=== PATIENT | male | born 1985 | race Caucasian/White ===

== ENCOUNTER 2017-05-19 | Inpatient (IN) | payer OTHER ==
[2017-05-19] VITALS (7 sets, daily range): BP systolic 100–136; BP diastolic 64–87
[~2017-05-19] VITALS: Ht 182.9 cm; Wt 81.6 kg
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
[2017-05-19 00:38] LABS: BASO % 1 % (0-3); EOS % 3 % (0-3); HEMATOCRIT 45.5 % (39.0-53.0); HEMOGLOBIN 15.4 g/dL (13.0-17.5); LYMPH # 1.7 x10^3/uL (1.0-4.8); LYMPH % 33 % (24-48); MEAN CORPUSCULAR HEMOGLOBIN 30 pg (25-35); MEAN CORPUSCULAR HGB CONC 34 g/dL (31-37); MEAN CORPUSCULAR VOLUME 90 fL (79-100); MONO % 8 % (0-9); NEUT % 55 % (31-73); PLATELET COUNT 153 x10^3/uL (140-400); RED BLOOD COUNT 5.06 x10^6/uL (4.30-5.70); RED CELL DISTRIBUTION WIDTH 12.6 % (11.5-14.5); WHITE BLOOD COUNT 5.1 x10^3/uL (4.0-11.0)
[2017-05-19 00:56] LABS: ANION GAP 7 (6-14); BLOOD UREA NITROGEN 15 mg/dL (8-26); CALCIUM 9.1 mg/dL (8.5-10.1); CARBON DIOXIDE 29 mmol/L (21-32); CHLORIDE 106 mmol/L (98-107); GFR 88.3; GLUCOSE 91 mg/dL (70-99); POTASSIUM 4.2 mmol/L (3.5-5.1); SODIUM 142 mmol/L (136-145)
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
[2017-05-19] MEDS ORDERED: MAGNESIUM SULFATE 2GM 50 ML IV ONE (02:30)
[2017-05-19] MEDS ORDERED: ONDANSETRON PF 4 MG/2 ML VIAL. IV PRN ×2 (02:45→09:00)
[2017-05-19] MEDS ORDERED: ACETAMINOPHEN 325 MG TABLET. PO PRN (02:45)
[2017-05-19] MEDS ORDERED: BUSP10TA PO (02:47)
[2017-05-19] MEDS ORDERED: PHEN100C PO (02:47)
[2017-05-19] MEDS ORDERED: BUPR100T7 PO (02:47)
[2017-05-19] MEDS ORDERED: CARB200T PO (02:47)
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
[2017-05-19] MEDS ORDERED: IBUPROFEN 600 MG TABLET. PO PRN (09:00)
[2017-05-19] MEDS ORDERED: PHENYTOIN SODIUM EXTENDED 100 MG CAPSULE PO SCH (09:00)
[2017-05-19] MEDS: buPROPion SR 100 MG TABLET.SA. PO SCH ×2 (09:24→20:51)
[2017-05-19] MEDS: carBAMazepine 200 MG TABLET PO SCH ×2 (09:25→20:49)
[2017-05-19] MEDS: busPIRone 10 MG TABLET. PO SCH ×2 (09:25→20:49)
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
--- NOTE | 2017-05-19 19:58 | PDOC2 ---
NEUROLOGY CONSULT Date of Admission Date of Admission Full Report Dictated DATE: 05/19/17 TIME: 19:56 Current Medications Current Medications Current Medications Magnesium Sulfate/ Dextrose 50 ml @ 25 mls/hr 1X ONCE IV ; Start 05/19/17 at 02:30; Stop 05/19/17 at 04:29; Status Cancel Ondansetron HCl (Zofran) 4 mg PRN Q8HRS PRN IV NAUSEA/VOMITING; Start at 02:45; Stop 05/19/17 at 08:51; Status DC Acetaminophen (Tylenol) 650 mg PRN Q4HRS PRN PO FEVER; Start 05/19/17 at 02:45 ; Stop 05/20/17 at 02:44 Ondansetron HCl (Zofran) 4 mg PRN Q6HRS PRN IV NAUSEA/VOMITING; Start at 09:00 Ibuprofen (Motrin) 600 mg PRN Q6HRS PRN PO INFLAMMATION Last administered on 09:30; Start 05/19/17 at 09:00 Bupropion HCl (Wellbutrin Sr) 100 mg BID PO Last administered on 05/19/17 09: 24; Start 05/19/17 at 09:00 Buspirone HCl (Buspar) 20 mg BID PO Last administered on 05/19/17 09:25; Start 05/19/17 at 09:00 Carbamazepine (TEGretol) 200 mg BID PO Last administered on 05/19/17 09:25; Start 05/19/17 at 09:00 Phenytoin Sodium (Dilantin) 100 mg BID PO Last administered on 05/19/17 09:24 ; Start 05/19/17 at 09:00; Stop 05/19/17 at 19:43; Status DC Lorazepam (Ativan) 2 mg PRN Q4HRS PRN IV ANXIETY / AGITATION; Start 05/19/17 at 16:30 Phenytoin Sodium (Dilantin) 200 mg BID PO ; Start 05/19/17 at 21:00; Status UNV Active Scripts Active Reported Dilantin (Phenytoin Sodium Extended) 100 Mg Capsule 100 Mg PO BID Tegretol (Carbamazepine) 200 Mg Tablet 1 Tab PO BID Buspirone Hcl 10 Mg Tablet 20 Mg PO BID Wellbutrin Sr (Bupropion Hcl) 100 Mg Tablet.er 100 Mg PO BID Allergies Allergies: Coded Allergies: haloperidol (Verified Allergy, Intermediate, 05/19/17) Vitals VITALS Vital Signs Date Time Temp Pulse Resp B/P (MAP) Pulse Ox O2 Delivery O2 Flow Rate FiO2 05/19/17 14:50 97.6 76 18 118/72 (87) 98 Room Air 97.6 Labs Labs Laboratory Tests Test 05/19/17 00:20 White Blood Count 5.1 x10^3/uL (4.0-11.0) Red Blood Count 5.06 x10^6/uL (4.30-5.70) Hemoglobin 15.4 g/dL (13.0-17.5) Hematocrit 45.5 % (39.0-53.0) Mean Corpuscular Volume 90 fL (79-100) Mean Corpuscular Hemoglobin 30 pg (25-35) Mean Corpuscular Hemoglobin Concent 34 g/dL (31-37) Red Cell Distribution Width 12.6 % (11.5-14.5) Platelet Count 153 x10^3/uL (140-400) Neutrophils (%) (Auto) 55 % (31-73) Lymphocytes (%) (Auto) 33 % (24-48) Monocytes (%) (Auto) 8 % (0-9) Eosinophils (%) (Auto) 3 % (0-3) Basophils (%) (Auto) 1 % (0-3) Neutrophils # (Auto) 2.8 x10^3uL (1.8-7.7) Lymphocytes # (Auto) 1.7 x10^3/uL (1.0-4.8) Monocytes # (Auto) 0.4 x10^3/uL (0.0-1.1) Eosinophils # (Auto) 0.2 x10^3/uL (0.0-0.7) Basophils # (Auto) 0.0 x10^3/uL (0.0-0.2) Sodium Level 142 mmol/L (136-145) Potassium Level 4.2 mmol/L (3.5-5.1) Chloride Level 106 mmol/L (98-107) Carbon Dioxide Level 29 mmol/L (21-32) Anion Gap 7 (6-14) Blood Urea Nitrogen 15 mg/dL (8-26) Creatinine 1.0 mg/dL (0.7-1.3) Estimated GFR (Cockcroft-Gault) 88.3 Glucose Level 91 mg/dL (70-99) Calcium Level 9.1 mg/dL (8.5-10.1) Magnesium Level 2.0 mg/dL (1.8-2.4) Phenytoin (Dilantin) Level 4.5 mcg/mL (10.0-20.0) Phenytoin Last Dose Date Phenytoin Last Dose Time Carbamazepine (Tegretol) Level 2.3 mcg/mL (4.0-12.0) Carbamazepine Last Dose Date Carbamazepine Last Dose Time Laboratory Tests Test 05/19/17 00:20 White Blood Count 5.1 x10^3/uL (4.0-11.0) Red Blood Count 5.06 x10^6/uL (4.30-5.70) Hemoglobin 15.4 g/dL (13.0-17.5) Hematocrit 45.5 % (39.0-53.0) Mean Corpuscular Volume 90 fL (79-100) Mean Corpuscular Hemoglobin 30 pg (25-35) Mean Corpuscular Hemoglobin Concent 34 g/dL (31-37) Red Cell Distribution Width 12.6 % (11.5-14.5) Platelet Count 153 x10^3/uL (140-400) Neutrophils (%) (Auto) 55 % (31-73) Lymphocytes (%) (Auto) 33 % (24-48) Monocytes (%) (Auto) 8 % (0-9) Eosinophils (%) (Auto) 3 % (0-3) Basophils (%) (Auto) 1 % (0-3) Neutrophils # (Auto) 2.8 x10^3uL (1.8-7.7) Lymphocytes # (Auto) 1.7 x10^3/uL (1.0-4.8) Monocytes # (Auto) 0.4 x10^3/uL (0.0-1.1) Eosinophils # (Auto) 0.2 x10^3/uL (0.0-0.7) Basophils # (Auto) 0.0 x10^3/uL (0.0-0.2) Sodium Level 142 mmol/L (136-145) Potassium Level 4.2 mmol/L (3.5-5.1) Chloride Level 106 mmol/L (98-107) Carbon Dioxide Level 29 mmol/L (21-32) Anion Gap 7 (6-14) Blood Urea Nitrogen 15 mg/dL (8-26) Creatinine 1.0 mg/dL (0.7-1.3) Estimated GFR (Cockcroft-Gault) 88.3 Glucose Level 91 mg/dL (70-99) Calcium Level 9.1 mg/dL (8.5-10.1) Magnesium Level 2.0 mg/dL (1.8-2.4) Phenytoin (Dilantin) Level 4.5 mcg/mL (10.0-20.0) Phenytoin Last Dose Date Phenytoin Last Dose Time Carbamazepine (Tegretol) Level 2.3 mcg/mL (4.0-12.0) Carbamazepine Last Dose Date Carbamazepine Last Dose Time Assessment/Plan Assessment/Plan Patient is a 31-year-old with a known seizure disorder maintained on Dilantin and Tegretol but subtherapeutic on both medications. He reports that his usual dose of Dilantin is 200 mg twice a day which I will resume. I will give a load of fosphenytoin of 800 mg to try to get him more in the therapeutic range. He will need a follow-up Dilantin level in one week. He reports the Tegretol was 100 mg in the morning and 200 mg at night. I will change this to 200 mg twice per day to simplify the regimen. He will likely be subtherapeutic on this dosage so level is not necessary. He were to have further breakthrough seizures then levels can be obtained and the dosage can be pushed. Likely has suffered a concussion which will take up to 12 weeks to resolve. He may be transferred back to his facility tomorrow if he continues to be medically stable. SONYA MATA MD May 19, 2017 19:58
[2017-05-19] MEDS ORDERED: NORMAL SALINE IV ONE (20:15)
[2017-05-19] MEDS ORDERED: FOSPHENYTOIN IV ONE (20:15)
[2017-05-19] MEDS: PHENYTOIN SODIUM EXTENDED 100 MG CAPSULE PO SCH (20:51)
[2017-05-20 03:00] VITALS: BP 124/70
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
[2017-05-20 06:10] LABS: BASO % 1 % (0-3); EOS % 4 % (0-3); HEMOGLOBIN 14.4 g/dL (13.0-17.5); LYMPH % 42 % (24-48); MEAN CORPUSCULAR HEMOGLOBIN 30 pg (25-35); MEAN CORPUSCULAR HGB CONC 34 g/dL (31-37); MEAN CORPUSCULAR VOLUME 91 fL (79-100); MONO % 8 % (0-9); NEUT % 45 % (31-73); PLATELET COUNT 141 x10^3/uL (140-400); RED BLOOD COUNT 4.75 x10^6/uL (4.30-5.70); RED CELL DISTRIBUTION WIDTH 12.9 % (11.5-14.5); WHITE BLOOD COUNT 4.7 x10^3/uL (4.0-11.0)
[2017-05-20 06:34] LABS: CALCIUM 9.1 mg/dL (8.5-10.1); GFR 88.3
[2017-05-20 07:20] VITALS: BP 138/72
[2017-05-20] MEDS: PHENYTOIN SODIUM EXTENDED 100 MG CAPSULE PO SCH ×2 (09:11→17:41)
[2017-05-20] MEDS: carBAMazepine 200 MG TABLET PO SCH ×2 (09:12→17:41)
[2017-05-20] MEDS: busPIRone 10 MG TABLET. PO SCH ×2 (09:12→17:41)
[2017-05-20] MEDS: buPROPion SR 100 MG TABLET.SA. PO SCH ×2 (09:12→17:41)
[2017-05-20 11:04] VITALS: BP 118/77
--- NOTE | 2017-05-20 13:54 | PDOC ---
PROGRESS NOTES Assessment Assessment IMPRESSION: Head injury, soft tissue. Seizure per Hx. RECOMMENDATIONS/PLAN: EEG Continue his AEDs. at the present time. Tegretol 200 mg bid, Dilantin 200 mg bid. SUBJECTIVE: No complaints on 05/20/17. OBJECTIVE: No seizures. Past Medical History CENTRAL NERVOUS SYSTEM: Seizure Past Surgical History No pertinent history Family History No Significant Social History Smoke: No ALCOHOL: none Drugs: None ALLERGY: Reviewed. MEDICATIONS: Refer to [facility] REVIEW OF SYSTEMS: Constitutional: No malnutrition, weight loss, cachexia. Head: Head soft tissue injury this time. Skin: No edema, or rash. Ear: No infection. Eyes: No vision loss, or diplopia. Nose: No bleeding or purulent discharges. Hearing: No hearing decrease. Neck: No injury. Cardiac: No OH, arrhythmia Pulmonary: No pneumonia. GI: No GI Ulcer, GI bleeding Urinary/genital: No dysuria, incontinence, urinary retention. Endocrine: No cousin face, craniofacial dysmorphism, polydactyly Skeletomuscular: No muscular atrophy, deformity. Neurological: see HP. Psychiatric: Denies drug use/abuse. Otherwise, not [id number] review of systems. PHYSICAL EXAMINATION: General appearance in no acute distress. HEENT: Normocephalic and nontraumatic. Eyes, nose, ears, and throat are unremarkable. Neck is supple. No lymphadenopathy. No bruits are heard over the carotid artery. No Crepitus. Cardiovascular: S1, S2, regular rate and rhythm. Pulmonary: Clear to auscultation bilaterally. Abdomen: Bowel sounds are positive. Abdomen is soft, nontender, and nondistended. Extremities: No rash, lesions, or edema. No restriction of range of motion NEUROLOGICAL EXAMINATION: Alert. Oriented to time, place and person. PERRL. EOMI. CN: no focal findings. Muscle tone: within normal. Muscle strength: 5 DTR: 2 Plantar reflex: Flexor response bilaterally Gait: not examined in bed. Sensory exam: no abnormal findings. No cerebellar signs elicited. F-T-N test accurate. Objective Objective Vital Signs Date Time Temp Pulse Resp B/P (MAP) Pulse Ox O2 Delivery O2 Flow Rate FiO2 05/20/17 11:04 97.4 61 18 118/77 (91) 96 Room Air 97.4 Intake and Output 05/20/17 07:00 Intake Total 3100 ml Balance 3100 ml Intake Oral 3100 ml # Voids 11 Vitals Signs Vitals VS - Last 72 Hours, by Label Date Time Temp Pulse Resp B/P (MAP) Pulse Ox O2 Delivery O2 Flow Rate FiO2 05/20/17 11:04 97.4 61 18 118/77 (91) 96 Room Air 97.4 05/20/17 08:00 Room Air 05/20/17 07:20 97.4 71 18 138/72 (94) 100 Room Air 97.4 05/20/17 03:00 98.0 60 18 124/70 (88) 99 Room Air 98.0 05/19/17 22:52 97.7 57 19 125/79 (94) 96 Room Air 97.7 05/19/17 20:00 Room Air 05/19/17 19:00 97.5 71 18 128/77 (94) 97 Room Air 97.5 05/19/17 14:50 97.6 76 18 118/72 (87) 98 Room Air 97.6 05/19/17 10:54 98.1 70 18 125/72 (89) 99 Room Air 98.1 05/19/17 08:00 Room Air 05/19/17 07:57 98.6 56 18 136/87 (103) 95 Room Air 98.6 Laboratory Laboratory Laboratory Tests Test 05/20/17 05:00 White Blood Count 4.7 x10^3/uL (4.0-11.0) Red Blood Count 4.75 x10^6/uL (4.30-5.70) Hemoglobin 14.4 g/dL (13.0-17.5) Hematocrit 43.0 % (39.0-53.0) Mean Corpuscular Volume 91 fL (79-100) Mean Corpuscular Hemoglobin 30 pg (25-35) Mean Corpuscular Hemoglobin Concent 34 g/dL (31-37) Red Cell Distribution Width 12.9 % (11.5-14.5) Platelet Count 141 x10^3/uL (140-400) Neutrophils (%) (Auto) 45 % (31-73) Lymphocytes (%) (Auto) 42 % (24-48) Monocytes (%) (Auto) 8 % (0-9) Eosinophils (%) (Auto) 4 % (0-3) Basophils (%) (Auto) 1 % (0-3) Neutrophils # (Auto) 2.1 x10^3uL (1.8-7.7) Lymphocytes # (Auto) 2.0 x10^3/uL (1.0-4.8) Monocytes # (Auto) 0.4 x10^3/uL (0.0-1.1) Eosinophils # (Auto) 0.2 x10^3/uL (0.0-0.7) Basophils # (Auto) 0.0 x10^3/uL (0.0-0.2) Sodium Level 144 mmol/L (136-145) Potassium Level 4.0 mmol/L (3.5-5.1) Chloride Level 106 mmol/L (98-107) Carbon Dioxide Level 30 mmol/L (21-32) Anion Gap 8 (6-14) Blood Urea Nitrogen 12 mg/dL (8-26) Creatinine 1.0 mg/dL (0.7-1.3) Estimated GFR (Cockcroft-Gault) 88.3 Glucose Level 78 mg/dL (70-99) Calcium Level 9.1 mg/dL (8.5-10.1) Medication Medications Current Medications Fosphenytoin Sodium 800 mg/ Sodium Chloride 66 ml @ 280 mls/hr 1X ONCE IV Last administered on 05/19/17 20:49; Start 05/19/17 at 20:15; Stop 05/19/17 at 20:29; Status DC Lorazepam (Ativan) 2 mg PRN Q4HRS PRN IV ANXIETY / AGITATION; Start 05/19/17 at 16:30 Phenytoin Sodium (Dilantin) 200 mg BID PO Last administered on 05/20/17 09:11 ; Start 05/19/17 at 21:00 Comment Review of Relevant I have reviewed the following items waylon (where applicable) has been applied. GERMAN KIM MD May 20, 2017 13:54
[2017-05-20 14:29] VITALS: BP 118/57
[2017-05-20] MEDS ORDERED: IBUP-985 PO (15:45)
[2017-05-20] MEDS ORDERED: PHEN100C PO (15:45)
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
== END 2017-05-20 18:41 | DRG 90 ==
LOC: ER → EEVIPCON → 6 SOUTH 01:28
PROVIDERS: ADMIT Internal Medicine; ATTEND Internal Medicine
DX: S06.0X9A Concussion with loss of consciousness of unspecified duration, initial encounter (principal); G40.909 Epilepsy, unspecified, not intractable, without status epilepticus; W50.0XXA Accidental hit or strike by another person, initial encounter; Y93.89 Activity, other specified; Y92.89 Other specified places as the place of occurrence of the external cause; Y99.8 Other external cause status
CPT/HCPCS: 36415; 70450; 72125; 73130; 80048; 80156; 80185; 83735; 85025; Q2009; 99285-25